=== PATIENT | female | born 1950 | race African-American/Black ===

== ENCOUNTER 2020-04-06 17:30 | Emergency (ER) | payer MEDICARE ==
[2020-04-06 17:36] VITALS: BP 150/85
--- NOTE | 2020-04-06 18:04 | ER Document Report ---
HPI <MACY PETERSON - Last Filed: 04/06/20 19:12> - HPI Patient complains to provider of: toe pain Onset: This afternoon Onset/Duration: Sudden Quality of pain: Achy Context: 69-year-old female with history of diabetes presents to the emergency department with left toe pain. Reports she hit it [place]. She reports she felt a pop. She did take a tramadol for the pain. No obvious deformity. Other complaint such as fever vomiting diarrhea. Associated Symptoms: None Exacerbated by: Walking Relieved by: Denies Similar symptoms previously: No Recently seen / treated by doctor: No <TAMMI BAUTISTA - Last Filed: 04/06/20 19:24> - HPI Time Seen by Provider: 04/06/20 17:53 Past Medical History - General Information source: Patient - Social History Smoking Status: Unknown if Ever Smoked Cigarette use (# per day): No Frequency of alcohol use: None Drug Abuse: None Lives with: Family Family History: None Patient has suicidal ideation: No Patient has homicidal ideation: No Endocrine Medical History: Reports: Hx Diabetes Mellitus Type 2, Hx Hyperthyroidism Past Surgical History: Reports: Hx Orthopedic Surgery <TAMMI BAUTISTA - Last Filed: 04/06/20 19:24> Vertical Provider Document - CONSTITUTIONAL Agree With Documented VS: Yes Exam Limitations: No Limitations General Appearance: WD/WN, No Apparent Distress - HEENT HEENT: Atraumatic, Normocephalic - NECK Neck: Supple - RESPIRATORY Respiratory: No Respiratory Distress - CARDIOVASCULAR Cardiovascular: Regular Rate - MUSCULOSKELETAL/EXTREMETIES Musculoskeletal/Extremeties: MAEW, FROM, Tender - Left fifth toe tender to palpation no obvious deformity cap refill less than 3 seconds pedal pulse +3 no erythema no swelling no warmth nail intact - NEURO Level of Consciousness: Awake, Alert, Appropriate Motor/Sensory: No Motor Deficit - DERM Integumentary: Warm, Dry <TAMMI BAUTISTA - Last Filed: 04/06/20 19:24> Course - Vital Signs Vital signs: Temp Pulse Resp BP Pulse Ox 98.4 F 73 16 150/85 H 98 04/06/20 17:54 04/06/20 17:35 04/06/20 17:35 04/06/20 17:35 04/06/20 17:35 <MACY PETERSON - Last Filed: 04/06/20 19:12> - Re-evaluation Re-evalutation: 04/06/20 19:15 Foot X-Ray 04/06/20 17:56 IMPRESSION: Fracture of the 5th proximal phalanx. Calcaneal spurs. Patient with fracture of the fifth proximal phalanx. Ebenezer taped and postop shoe placed. Patient also requested tramadol prescription. She reports she has some at home very few. She was instructed on importance of follow-up with her primary care for referral to orthopedics as indicated. She verbalized understanding to all instruction. - Vital Signs Vital signs: Temp Pulse Resp BP Pulse Ox 98.4 F 73 16 150/85 H 98 04/06/20 17:35 04/06/20 17:35 04/06/20 17:35 04/06/20 17:35 04/06/20 17:35 - Diagnostic Test Radiology reviewed: Image reviewed, Reports reviewed <TAMMI BAUTISTA - Last Filed: 04/06/20 19:24> Procedures - Immobilization Left 5th digit Immobilizer type: Post-op shoe, Other - ebenezer tape Performed by: PCT Post-Proc Neuro Vasc Exam: Unchanged from pre-exam Alignment checked and good: Yes <TAMMI BAUTISTA - Last Filed: 04/06/20 19:24> Discharge <MACY PETERSON - Last Filed: 04/06/20 19:12> <TAMMI BAUTISTA - Last Filed: 04/06/20 19:24> - Discharge Clinical Impression: Injury of left toe Qualifiers: Encounter type: initial encounter Qualified Code(s): S99.922A - Unspecified injury of left foot, initial encounter Fracture of fifth toe, left, closed Qualifiers: Encounter type: initial encounter Qualified Code(s): S92.502A - Displaced unspecified fracture of left lesser toe(s), initial encounter for closed fracture Condition: Stable Disposition: HOME, SELF-CARE Instructions: Ebenezer Taping (toes) ([facility]), Use of Bygt-Sdv-Cvcojbe Ibuprofen ([facility]), Ice & Elevation ([facility]), Post-Op Shoe ([facility]), Ultram ([facility]) Additional Instructions: *You have been evaluated for left toe injury, fractured toe *Maintain the ebenezer tape and post op shoe for comfort *Rest/Ice/Elevate your toe, wear wide, good supporting shoes to protect your toe *Follow up with your primary care provider for referral to orthopedics as indicated *Take ultram as prescribed pain *Return to emergency department for increased pain, worsening condition, needs Monitor your blood pressure. Your blood pressure was elevated today. This may be because you were anxious, in pain or because you need medication. It is important to follow up with your primary care provider for full evaluation. Prescriptions: Tramadol HCl [Ultram 50 mg Tablet] 50 mg PO Q4HP PRN #15 tab PRN Reason: Forms: Elevated Blood Pressure
--- NOTE | 2020-04-06 18:19 | RADIOLOGY REPORT (SQ) ---
EXAM DESCRIPTION: FOOT LEFT COMPLETE IMAGES COMPLETED DATE/TIME: 04/06/2020 6:09 pm REASON FOR STUDY: 5th toe pain, hit something COMPARISON: None. NUMBER OF VIEWS: Three views. TECHNIQUE: AP, lateral and oblique radiographic images acquired of the left foot. LIMITATIONS: None. FINDINGS: MINERALIZATION: Normal. BONES: Oblique nondisplaced fracture of the 5th proximal phalanx. Plantar and posterior calcaneal sp urs. JOINTS: No effusions. SOFT TISSUES: No soft tissue swelling. No foreign body. OTHER: No other significant finding. IMPRESSION: Fracture of the 5th proximal phalanx. Calcaneal spurs. TECHNICAL DOCUMENTATION: JOB ID: [id number] 2010 [employer]- All Rights Reserved Reading location - IP/workstation name: [email or web address]
== END 2020-04-06 19:20 | disposition home or self-care (01) ==
LOC: ER 17:30
DX: S92.512A Displaced fracture of proximal phalanx of left lesser toe(s), initial encounter for closed fracture (principal); M79.675 Pain in left toe(s); W22.09XA Striking against other stationary object, initial encounter; Y92.59 Other trade areas as the place of occurrence of the external cause; E11.9 Type 2 diabetes mellitus without complications
CPT/HCPCS: 99283